=== PATIENT | male | born 1980 | race Caucasian/White ===

== ENCOUNTER 2018-12-02 08:53 | Day surgery (SDC) | payer OTHER, BC ==
[2018-12-02] MEDS: SOD CHLORIDE 0.9% 1,000 ML IV (06:00)
[~2018-12-02 08:53] MED LIST: CEFAZOLIN 2 GM/50 ML (PMX) 50 ML IVPB
[2018-12-02 10:00] LABS: ADD MAN DIFF? NO
[2018-12-02 10:02] LABS: WHITE BLOOD COUNT 6.1 10^3/ul (4.8-10.8)
[2018-12-02 10:02] LABS: BASOPHILS % 0.5 % (0.0-2.0); EOSINOPHILS # 0.1 10^3/ul (0.0-0.5); HEMATOCRIT 41.8 % (42.0-52.0); HEMOGLOBIN 14.1 g/dl (14.0-18.0); LYMPHOCYTES % 32.8 % (15.0-51.0); MEAN CORPUSCULAR HEMOGLOBIN 26.8 pg (29.0-33.0); MEAN CORPUSCULAR HGB CONC 33.7 g/dl (32.0-37.0); MEAN CORPUSCULAR VOLUME 79.3 fl (82.0-101.0); MEAN PLATELET VOLUME 10.8 fl (7.4-10.4); MONOCYTE # 0.5 10^3/ul (0.3-0.9); MONOCYTES % 8.2 % (0.0-11.0); NEUTROPHIL # 3.5 10^3/ul (1.6-7.5); NEUTROPHILS % 56.7 % (39.0-77.0); PLATELET COUNT 173 10^3/UL (140-415); RED BLOOD COUNT 5.27 10^6/ul (4.70-6.10); RED CELL DISTRIBUTION WIDTH 12.3 % (11.5-14.5)
[2018-12-02 10:21] LABS: ALANINE AMINOTRANSFERASE 39 IU/L (13-69); ALBUMIN 3.9 g/dl (3.3-4.9); ALBUMIN/GLOBULIN RATIO 1.25; ALKALINE PHOSPHATASE 100 IU/L (42-121); ANION GAP 9 (5-13); ASPARTATE AMINO TRANSFERASE 24 IU/L (15-46); BILIRUBIN,INDIRECT 0.5 mg/dl (0-1.1); BILIRUBIN,TOTAL 0.5 mg/dl (0.2-1.3); BLOOD UREA NITROGEN 13 mg/dl (7-20); CALCIUM 8.5 mg/dl (8.4-10.2); CARBON DIOXIDE 24 mmol/L (21-31); CHLORIDE 107 mmol/L (97-110); Estimated GFR > 60 mL/min (>60); GLUCOSE 103 mg/dl (70-220); INR 0.93; POTASSIUM 4.1 mmol/L (3.5-5.1); PROTIME 12.6 Sec (11.9-14.9); SODIUM 140 mmol/L (135-144)
[2018-12-02 10:22] LABS: CREATININE 0.54 mg/dl (0.61-1.24); PARTIAL THROMBOPLASTIN TIME 31.2 Sec (23.0-35.0)
[2018-12-02] MEDS ORDERED: MIDAZOLAM 1 MG/ML 2 ML INJ (11:28)
[2018-12-02] MEDS ORDERED: FENTAnyl 50 MCG/ML VIAL ×2 (11:28→11:31)
[2018-12-02] MEDS ORDERED: PROPOFOL 200 MG INJ (11:28)
[2018-12-02] MEDS ORDERED: LIDOCAINE 2% (SDV) 5 ML INJ (11:28)
[2018-12-02] MEDS ORDERED: CEFAZOLIN 1 GM INJ (11:29)
[2018-12-02] MEDS ORDERED: HYDROmorphONE 1 MG/5 ML IV SYRINGE IV ×3 (11:30)
[2018-12-02] MEDS ORDERED: LIDOCAINE 2% (MDV) 20 ML INJ (11:31)
[2018-12-02] MEDS ORDERED: BUPIVACAINE 0.5% (SDV) 30 ML INJ (11:31)
[2018-12-02] MEDS ORDERED: KETOROLAC 30 MG INJ (11:32)
[2018-12-02] MEDS ORDERED: ONDANSETRON 4 MG INJ (11:48)
[2018-12-02] MEDS: HYDROCODONE/APAP (5/325) TAB PO (12:42)
== END 2018-12-02 13:35 | disposition home or self-care (01) ==
LOC: SDS 08:53
DX: M67.432 Ganglion, left wrist (principal); E03.9 Hypothyroidism, unspecified
CPT/HCPCS: 14020; 80053; 85025; 85610; 85730; 88304